=== PATIENT | female | born 1940 | race Caucasian/White ===

== ENCOUNTER 2017-11-17 09:50 | Emergency (ER) | payer MEDICARE ==
[2017-11-17 10:54] LABS: ALT (SGPT) 20 U/L (8-55); AST (SGOT) 38 U/L (5-34); Albumin 3.4 g/dL (3.4-4.8); Alkaline Phosphatase 160 U/L (40-150); Anion Gap 16 mmol/L (10-20); BUN (Urea Nitrogen) 14 mg/dL (9.8-20.1); Bilirubin, Total 2.8 mg/dL (0.2-1.2); Calc. Creatinine Clearance 0 mL/min (70-130); Calcium 7.2 mg/dL (7.8-10.44); Carbon Dioxide 27 mmol/L (23-31); Chloride 99 mmol/L (98-107); Estimated GFR-MDRD 51; Glucose 133 mg/dL (83-110); Potassium 3.3 mmol/L (3.5-5.1); Protein, Total 7.4 g/dL (6.0-8.3); Sodium 139 mmol/L (136-145)
[2017-11-17 10:56] LABS: CKMB 2.2 ng/mL (0-6.6); Troponin I 0.038 ng/mL (< 0.028)
[2017-11-17 11:07] LABS: #Basophils 0.1 thou/uL (0.0-0.2); #Eosinphils 0.1 thou/uL (0.0-0.7); #Neutrophils 5.6 thou/uL (1.40-6.50); %Basophils 1.1 % (0.0-1.0); %Eosinophils 1.7 % (0.0-10.0); %Lymphocytes 22.9 % (21.0-51.0); %Monocytes 10.8 % (0.0-10.0); %Neutrophils 63.6 % (42.0-75.0); Hemoglobin 12.7 g/dL (12.0-16.0); Mean Corpuscular HGB CONC 31.4 g/dL (32.0-36.0); Mean Corpuscular Hemoglobin 29.6 pg (27.0-31.0); Mean Corpuscular Volume 94.3 fl (81.0-99.0); Mean Platelet Volume 7.9 fL (7.4-10.4); Platelet Count 241 thou/uL (130-400); RBC Distribution Width 16.5 % (11.5-14.5); Red Blood Cell (RBC) Count 4.29 mill/uL (4.20-5.40); White Blood Cell (WBC) Count 8.9 thou/uL (4.8-10.8)
--- NOTE | 2017-11-17 11:12 | CT ---
CT HEAD WITHOUT CONTRAST: Technique: Multiple axial tomograms were obtained through the head without IV enhancement. History: Mental status change. Comparison: None. FINDINGS: Ventricles have normal size and position. There are moderate to severe chronic ischemic white matter changes seen in both cerebral hemispheres. There is an area of abnormal low attenuation involving the cortex and subcortical region in the right parietal lobe consistent with infarct. This may represent a subacute infarct. Suggest further evalua tion with MRI to assess restricted diffusion and better characterize this apparent infarct. No hemorrhage or mass effect. IMPRESSION: 1. Focal area of low attenuation including cortex and subcortical region of the right parietal lobe. Subacute infarct is suspected. Recommend further evaluation with MRI which can better characterize an d age this abnormality. 2. Moderate to severe chronic ischemic white matter changes. POS: [facility]
[2017-11-17 11:22] LABS: Bilirubin Small (Negative); Blood, Urine Small (Negative); Glucose, Urine (Dipstick) Negative (Negative); Leukocyte Large (Negative); Nitrite Negative (Negative); Protein, Urine (Dipstick) 30 mg/dL (Neg-Trace)
[2017-11-17 11:23] LABS: Clarity Cloudy (Clear)
[2017-11-17 11:33] LABS: Bacteria/HPF 3+ HPF (None Seen)
--- NOTE | 2017-11-17 11:33 | RAD ---
PORTABLE CHEST 1 VIEW: Date: 11/17/17 Time: 1029 hours HISTORY: Altered mental status. FINDINGS: Comparison made with exam of 12/26/11. There are changes of median sternotomy. The heart is enlarged. Left-sided pacemaker device is again n oted. The lungs are well expanded without confluent areas of consolidation, pneumothorax, mckenzie pulmo nary edema, or pleural effusions. IMPRESSION: Cardiomegaly. POS: [facility]
[2017-11-17 11:34] LABS: Crystals/HPF 3+ AMORPH URATES HPF (Negative)
[2017-11-17] MEDS ORDERED: Nitroglycerin 2% Ointment 1 INCH/1 GM Packet ONE (11:35)
[2017-11-17] MEDS ORDERED: Aspirin 325 MG TAB ONE (11:35)
--- NOTE | 2017-11-17 12:58 | ULT ---
GALLBLADDER ULTRASOUND: HISTORY: Right upper quadrant pain. Elevated liver enzymes. Gallbladder surgery on 09/02/2017. TECHNIQUE: Utilizing a Multi-Hertz transducer, sonographic imaging of the right upper quadrant is performed in t he longitudinal and transverse plane. FINDINGS: Right-sided pleural effusion is identified. The hepatic parenchyma has a normal echotexture. No hep atic masses or intrahepatic biliary dilatation. The contour of the hepatic margin is maintained. Cruz boptimal evaluation of the aorta, pancreas, and IVC. The gallbladder is surgically absent. Common b ile duct diameter is 0.3 cm. RIGHT KIDNEY: Normal cortical echotexture. No hydronephrosis. The right kidney measures 4.4 x 10.8 x 4.7 cm. IMPRESSION: 1. Normal hepatic parenchymal echotexture. If there is concerning for hepatic masses, consider dedi cated abdomen CT. 2. Small right-sided pleural effusion. POS: [facility]
[2017-11-17] MEDS ORDERED: Carvedilol 6.25 MG TAB ONE (13:38)
== END 2017-11-17 14:35 | disposition short-term general hospital (02) ==
LOC: MADERS 09:50
DX: T42.6X1A Poisoning by other antiepileptic and sedative-hypnotic drugs, accidental (unintentional), initial encounter (principal); I21.4 Non-ST elevation (NSTEMI) myocardial infarction; R41.82 Altered mental status, unspecified; E11.9 Type 2 diabetes mellitus without complications; E03.9 Hypothyroidism, unspecified; I10 Essential (primary) hypertension; F32.9 Major depressive disorder, single episode, unspecified; Z79.899 Other long term (current) drug therapy
CPT/HCPCS: 70450; 71045; 76705; 80053; 81003; 81015; 82553; 84443; 84484; 85025; 93005

== ENCOUNTER 2018-01-07 16:11 | Outpatient (CLI) | payer MEDICARE ==
[2018-01-07 21:43] LABS: Follow-up Chemistry Comp? YES; Follow-up Result - Chemistry REPORT FAXED
== END 2018-01-07 16:12 | disposition home or self-care (01) ==
LOC: MADLAB 16:11
PROVIDERS: ATTEND Psychiatry & Neurology Neurology
DX: G40.109 Localization-related (focal) (partial) symptomatic epilepsy and epileptic syndromes with simple partial seizures, not intractable, without status epilepticus (principal)
CPT/HCPCS: 80177

== ENCOUNTER 2018-04-15 13:12 | Outpatient (CLI) | payer MEDICARE, OTHER | END 2018-04-15 13:13 | disposition home or self-care (01) | LOC: MADLAB 13:12 | PROVIDERS: ATTEND Psychiatry & Neurology Neurology | DX: R56.9 Unspecified convulsions (principal) | CPT/HCPCS: 80177 ==

== ENCOUNTER 2018-05-13 17:32 | Outpatient (CLI) | payer MEDICARE ==
[2018-05-13 17:43] LABS: Bilirubin Negative (Negative); Blood, Urine Negative (Negative); Clarity Clear (Clear); Glucose, Urine (Dipstick) Negative (Negative); Leukocyte Small (Negative); Nitrite Negative (Negative); Protein, Urine (Dipstick) Negative (Neg-Trace); Urobilinogen 0.2 mg/dL (0.2-1.0)
[2018-05-13 18:09] LABS: Bacteria/HPF 1+ HPF (None Seen); RBC/HPF 0-3 HPF (0-3); Squamous Epithelial 0-3 HPF (0-3)
[2018-05-13 18:10] LABS: Crystals/HPF RARE CA OXALATE HPF (Negative)
== END 2018-05-13 17:33 | disposition home or self-care (01) ==
LOC: MADLABBHPM 17:32
PROVIDERS: ATTEND Internal Medicine
DX: I13.0 Hypertensive heart and chronic kidney disease with heart failure and stage 1 through stage 4 chronic kidney disease, or unspecified chronic kidney disease (principal); N18.3 Chronic kidney disease, stage 3 (moderate)
CPT/HCPCS: 81001; 87086